=== PATIENT | female | born 1960 | race Caucasian/White ===

== ENCOUNTER 2016-07-18 06:36 | Emergency (ER) | payer OTHER ==
[~2016-07-18] VITALS: Ht 170.2 cm; Wt 69.4 kg
--- NOTE | 2016-07-18 06:56 | Emergency Room Report ---
History of Present Illness General Chief Complaint: Abdominal Pain Source: Patient Present Illness HPI Patient presents with complaints of mid abdominal pain Ongoing for the past one day Patient reports the pain started last night She cannot get comfortable Denies any vomiting or diarrhea however she has increased nausea Pain is 8/10 Hard for the patient to describe the type of pain Denies any fall or trauma denies any fevers or chills Denies any dysuria frequency Allergies: Coded Allergies: NITROFURANTOIN (Verified Allergy, Unknown, 07/18/16) SULFAMETHOXAZOLE (Verified Allergy, Unknown, 07/18/16) TRIMETHOPRIM (Verified Allergy, Unknown, 07/18/16) Uncoded Allergies: SULFA (Allergy, Unknown, 07/18/16) Patient History Past Medical History: see triage record Pertinent Family History: none Reviewed Nursing Documentation: PMH: Agreed, PSxH: Agreed Nursing Documentation-PMH Past Medical History: No History, Except For Review of Systems All Other Systems: negative except mentioned in HPI Physical Exam Vital Signs Date Time Temp Pulse Resp B/P Pulse Ox O2 Delivery O2 Flow Rate FiO2 07/18/16 06:39 97.5 81 14 146/91 99 Room Air Sp02 EP Interpretation: reviewed, normal General Appearance: mild distress - appears in acute pain Head: normocephalic, atraumatic Eyes: bilateral eye EOMI, bilateral eye PERRL ENT: hearing grossly normal, normal pharynx, TMs + canals normal, uvula midline Neck: full range of motion, supple, no meningismus, no bony tend Respiratory: lungs clear, normal breath sounds, no rhonchi, no respiratory distress, no retraction, no accessory muscle use Cardiovascular #1: normal peripheral pulses, regular rate, rhythm, no edema, no gallop, no JVD, no murmur Gastrointestinal: normal bowel sounds, soft, no mass, no organomegaly, non- distended, no guarding, no hernia, no pulsatile mass, no rebound, tenderness - Diffusely localized to the mid abdominal supraumbilical region Genitourinary: no CVA tenderness Neurologic: oriented x3, responsive, certified nutritionist III-XII nml as tested, motor strength/ tone normal, sensory intact Psychiatric: mood/affect normal Skin: normal color, no rash, warm/dry, palpation normal Lymphatic: normal inspection, no adenopathy Medical Decision Making Diagnostic Impression: Primary Impression: Abdominal pain ER Course With the history exam and presentation, multiple differentials considered, including but not limited to appendicitis, gastritis, cholecystitis, diverticulitis Patient's blood work is appropriate very minimal elevation of the AST and ALT Otherwise CT imaging was negative patient is asymptomatic at this time and appropriate for close outpatient followup Labs Test 07/18/16 06:57 White Blood Count 8.2 K/UL (4.8-10.8) Red Blood Count 4.54 M/UL (4.20-5.40) Hemoglobin 14.5 G/DL (12.0-16.0) Hematocrit 43.9 % (37.0-47.0) Mean Corpuscular Volume 97 FL (80-99) Mean Corpuscular Hemoglobin 32.0 PG (27.0-31.0) Mean Corpuscular Hemoglobin Concent 33.1 G/DL (32.0-36.0) Red Cell Distribution Width 11.6 % (11.6-14.8) Platelet Count 295 K/UL (150-450) Mean Platelet Volume 8.4 FL (6.5-10.1) Neutrophils (%) (Auto) 65.3 % (45.0-75.0) Lymphocytes (%) (Auto) 23.5 % (20.0-45.0) Monocytes (%) (Auto) 7.6 % (1.0-10.0) Eosinophils (%) (Auto) 2.6 % (0.0-3.0) Basophils (%) (Auto) 1.0 % (0.0-2.0) Sodium Level 141 mEQ/L (135-145) Potassium Level 3.5 mEQ/L (3.4-4.9) Chloride Level 98 mEQ/L (98-107) Carbon Dioxide Level 29 mEQ/L (20-30) Anion Gap 14 (5-15) Blood Urea Nitrogen 15 mg/dL (7-23) Creatinine 0.8 mg/dL (0.5-0.9) Estimat Glomerular Filtration Rate > 60 mL/min (>60) Glucose Level 118 mg/dL (74-106) Calcium Level 9.2 mg/dL (8.6-10.2) Total Bilirubin 0.4 mg/dL (0.0-1.2) Aspartate Amino Transf (AST/SGOT) 68 U/L (5-40) Alanine Aminotransferase (ALT/SGPT) 38 U/L (3-33) Alkaline Phosphatase 77 U/L (35-104) Total Protein 6.8 g/dL (6.6-8.7) Albumin 4.3 g/dL (3.5-5.2) Globulin 2.5 g/dL Albumin/Globulin Ratio 1.7 (1.0-2.7) Lipase 55 U/L (< 60) CT/MRI/US Diagnostic Results CT/MRI/US Diagnostic Results : Impression CT abdomen pelvisIMPRESSION: No evidence of acute abdominopelvic disease, with limitation as described. Subtle but potentially significant abnormalities the gastrointestinal tract may be missed. Repeat CT scan with full oral and IV contrast preparation recommended for more complete evaluation, as clinically indicated Mild bile duct prominence without obvious obstructive etiology. Correlate clinically. Mild gallbladder distention without obvious acute inflammatory change. Correlate clinically. Previous hysterectomy, probable bilateral salpingo-oophorectomy Suggestion of constipation Pulmonary bibasal subsegmental atelectasis Degenerative spondylosis Right flank intramuscular lipoma Last Vital Signs Date Time Temp Pulse Resp B/P Pulse Ox O2 Delivery O2 Flow Rate FiO2 07/18/16 06:39 97.5 81 14 146/91 99 Room Air Status: improved Disposition: HOME, SELF-CARE Condition: Improved Scripts Famotidine (PEPCID) 40 Mg Tablet 40 MG PO DAILY, #7 TAB 0 Refills Prov: NINFA MOYA D.O. 07/18/16 Additional Instructions: Patient is provided with the discharge instructions notified to follow up with primary doctor in the next 2-3 days otherwise return to the er with any worsening symptoms. Please note that this report is being documented using [employer] technology. This can lead to erroneous entry secondary to incorrect interpretation by the dictating instrument. NINFA MOYA D.O. Jul 18, 2016 06:56
[2016-07-18] MEDS ORDERED: Morphine Sulfate 4mg/ml Inj IVP ONE (07:00)
[2016-07-18 07:15] VITALS: BP 130/87
[2016-07-18 07:15] LABS: EOSINOPHILS % (AUTO) 2.6 % (0.0-3.0); LYMPHOCYTES % (AUTO) 23.5 % (20.0-45.0); MEAN CORPUSCULAR HGB CONC 33.1 G/DL (32.0-36.0); MEAN CORPUSCULAR VOLUME 97 FL (80-99); MEAN PLATELET VOLUME 8.4 FL (6.5-10.1); MONOCYTES % (AUTO) 7.6 % (1.0-10.0); NEUTROPHILS % (AUTO) 65.3 % (45.0-75.0); PLATELET COUNT 295 K/UL (150-450); RED BLOOD COUNT 4.54 M/UL (4.20-5.40); RED CELL DISTRIBUTION WIDTH 11.6 % (11.6-14.8); WHITE BLOOD COUNT 8.2 K/UL (4.8-10.8)
[2016-07-18 07:20] LABS: ALANINE AMINOTRANSFERASE 38 U/L (3-33); ALBUMIN/GLOBULIN RATIO 1.7 (1.0-2.7); ANION GAP 14 (5-15); ASPARTATE AMINO TRANSFERASE 68 U/L (5-40); CALCIUM 9.2 mg/dL (8.6-10.2); CARBON DIOXIDE 29 mEQ/L (20-30); CHLORIDE 98 mEQ/L (98-107); CREATININE 0.8 mg/dL (0.5-0.9); GLOMERULAR FILTRATION RATE > 60 mL/min (>60); HEMOLYSIS 2; LIPASE 55 U/L (< 60); POTASSIUM 3.5 mEQ/L (3.4-4.9); SODIUM 141 mEQ/L (135-145); TOTAL PROTEIN 6.8 g/dL (6.6-8.7)
--- NOTE | 2016-07-18 09:11 | Diagnostic Imaging Report ---
Indications: Abdominal pain Technique: Continuous helical CT imaging of the abdomen and pelvis was performed with automatic exposure control following administration of nonionic IV contrast only, on a Siemens sensation [address] scanner. Axial, coronal, sagittal images were reconstructed at 5 mm slice thickness. No oral contrast was administered per requesting physician's order, despite no contraindications listed in either submitted clinical data or tech note.. CTDI volume(s): 17 mGy Total DLP: 860 mGy-cm Findings: Comparison: None Lack of oral contrast limits evaluation of gastrointestinal tract, nondilated throughout. Appendix unremarkable. Increased colonic feces. No obvious mural thickening, adjacent stranding, extraluminal gas or fluid collections identified. Bile ducts are mildly, diffusely prominent to the level of ampulla of Vater, common bile duct maximum diameter 6 mm. No associated stone or mass identified. Gallbladder distended. No obvious mural thickening, adjacent stranding or fluid. Uterus absent. Neither ovary identified. Liver, pancreas, spleen, adrenal glands, kidneys, unopacified ureters and urinary bladder, vascular structures, retroperitoneum, mesentery, remainder visualized abdominopelvic anatomy unremarkable. Small pleural-based linear densities and mildly increased interstitial markings in the dependent portions both lung bases. Disc space narrowing with marginal osteophyte formation, vacuum phenomenon lower lumbar, lower thoracic spine. 4.5 cm circumscribed fat attenuation mass resides within the upper right flank abdominal wall musculature, bulging into the overlying subcutaneous soft tissues.. IMPRESSION: No evidence of acute abdominopelvic disease, with limitation as described. Subtle but potentially significant abnormalities the gastrointestinal tract may be missed. Repeat CT scan with full oral and IV contrast preparation recommended for more complete evaluation, as clinically indicated Mild bile duct prominence without obvious obstructive etiology. Correlate clinically. Mild gallbladder distention without obvious acute inflammatory change. Correlate clinically. Previous hysterectomy, probable bilateral salpingo-oophorectomy Suggestion of constipation Pulmonary bibasal subsegmental atelectasis Degenerative spondylosis Right flank intramuscular lipoma
[2016-07-18] MEDS ORDERED: PEPCID40 MG PO (09:17)
[2016-07-18 09:34] VITALS: BP 108/66
== END 2016-07-18 09:42 | disposition home or self-care (01) ==
LOC: EMR 07:14
DX: R10.9 Unspecified abdominal pain (principal); Z88.2 Allergy status to sulfonamides; Z88.8 Allergy status to other drugs, medicaments and biological substances; D17.9 Benign lipomatous neoplasm, unspecified; M47.9 Spondylosis, unspecified; J98.11 Atelectasis; Z90.710 Acquired absence of both cervix and uterus
CPT/HCPCS: 36415; 74177; 80053; 83690; 85025; 96360; 96361; 96374; 96375; 99284; J2270; J2405; Q9967